=== PATIENT | female | born 1980 | race Caucasian/White ===

== ENCOUNTER 2020-05-25 12:21 | Emergency (ER) | payer MEDICAID ==
--- NOTE | 2020-05-25 13:38 | EDM.PDOC ---
ED HPI GENERAL MEDICAL PROBLEM - General Chief Complaint: Neuro Symptoms/Deficits Stated Complaint: DIZZINESS/ NAUSEA Time Seen by Provider: 05/25/20 13:22 Source of Information: Reports: Patient, Family, RN Notes Reviewed History Limitations: Reports: No Limitations - History of Present Illness INITIAL COMMENTS - FREE TEXT/NARRATIVE: 40-year-old female presents emergency department a complaint of a insect bite and rash developing on her left lower extremity. She was evaluated in the clinic prescribed medications of prednisone and an antihistamine. She states she has taken 2 doses of the prednisone started to feel dizzy after the second dose, called the nurses line at the clinic and they recommended report to the emergency department for further evaluation. She states the dizziness has improved the longer she gets away from the ingestion of the prednisone. She does have pictures of her insect bite and how it is developed on her left lower extremity. - Related Data Allergies Allergy/AdvReac Type Severity Reaction Status Date / Time codeine Allergy Hives Verified 05/25/20 13:17 Home Meds: Home Meds Cetirizine [ZyrTEC] 10 mg PO DAILY 05/25/20 [History] predniSONE [Prednisone] 20 mg PO ASDIRECTED 05/25/20 [History] Past Medical History Musculoskeletal History: Reports: Fracture - Past Surgical History HEENT Surgical History: Reports: Oral Surgery GI Surgical History: Reports: Appendectomy Other Musculoskeletal Surgeries/Procedures:: ankle surgery Social & Family History - Tobacco Use Smoking Status *Q: Never Smoker ED ROS GENERAL - Review of Systems Review Of Systems: See Below Constitutional: Denies: Fever, Chills Respiratory: Reports: No Symptoms Cardiovascular: Reports: Lightheadedness GI/Abdominal: Reports: No Symptoms Skin: Reports: Wound Neurological: Reports: Dizziness ED EXAM, GENERAL - Physical Exam Exam: See Below Free Text/Narrative:: Examination of the leg there is a ulcer approximately by 1 cm there is redness approximately 2 cm around the wound slight central clearing and then a thin band of redness again concern for development of erythema migrans Course - Vital Signs Last Recorded V/S: Last Vital Signs Temp 98.8 F 05/25/20 13:13 Pulse 80 05/25/20 13:13 Resp 16 05/25/20 13:13 BP 109/43 L 05/25/20 13:13 Pulse Ox 97 05/25/20 13:13 Departure - Departure Time of Disposition: 13:37 Disposition: Home, Self-Care 01 Condition: Fair Clinical Impression: Erythema migrans (Lyme disease) Instructions: Lyme Disease, Tick Bite Information, Adult, [id number] Referrals: Alberta Lambert PA-C [Primary Care Provider] - Additional Instructions: Take full course of antibiotics, please followup with your primary care provider in 3-5 days if not better, please call return to the emergency department with worsening of symptoms. 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 twice daily x7 days we will have her discontinue the prednisone at this time continue to use the antihistamine as needed follow-up primary care 3 to 5 days if no improvement This note was dictated using [employer] voice recognition software please call with any questions on syntax or grammar.
== END 2020-05-25 13:59 | disposition home or self-care (01) ==
LOC: JP.ED 12:21
DX: A26.0 Cutaneous erysipeloid (principal); A69.20 Lyme disease, unspecified; Z88.5 Allergy status to narcotic agent
CPT/HCPCS: 99283

== ENCOUNTER 2020-10-22 04:14 | Emergency (ER) | payer OTHER, MEDICAID ==
[2020-10-22] MEDS ORDERED: Albuterol/Ipratropium 3.0-0.5 MG/3 ML Neb Soln NEB ONE (04:39)
--- NOTE | 2020-10-22 04:46 | EDM.PDOC ---
ED HPI GENERAL MEDICAL PROBLEM - General Chief Complaint: Respiratory Problem Stated Complaint: ALLERGIC REACTION TO BATHROOM SPRAY Time Seen by Provider: 10/22/20 04:30 Source of Information: Reports: Patient History Limitations: Reports: No Limitations - History of Present Illness INITIAL COMMENTS - FREE TEXT/NARRATIVE: Kelly is a 40-year-old female presenting to the ED for evaluation of cough, chest heaviness, shortness of breath, loss of voice, and sore throat secondary to coughing. The patient's symptoms started shortly after her employer sprayed an air freshener at work on (2 days ago). She denies any fever or chills, rhinorrhea, headache or body aches, loss of taste or smell. She states that she has had previous episodes of this when exposed to this air freshener and is complained at work several times to her boss about sprain this. She finally went to [employer] [facility] to complain yesterday. She was unable to sleep tonight because when she reclines it causes her to cough significantly. chest heaviness Pain Score (Numeric/FACES): 5 - Related Data Allergies Allergy/AdvReac Type Severity Reaction Status Date / Time codeine Allergy Hives Verified 10/22/20 04:25 Home Meds: Home Meds diphenhydrAMINE [Benadryl] 50 mg PO Q6HR PRN 10/22/20 [History] Past Medical History Gastrointestinal History: Reports: GERD [employer]TER History: Reports: Other (See Below) Other [employer]TER History: ovarian cysts Musculoskeletal History: Reports: Fracture Endocrine/Metabolic History: Reports: Obesity/BMI 30+ - Infectious Disease History Infectious Disease History: Reports: Chicken Pox, Mononucleosis - Past Surgical History HEENT Surgical History: Reports: Oral Surgery GI Surgical History: Reports: Appendectomy Other Musculoskeletal Surgeries/Procedures:: ankle surgery Social & Family History - Tobacco Use Tobacco Use Status *Q: Never Tobacco User - Caffeine Use Caffeine Use: Reports: Coffee - Alcohol Use Days Per Week of Alcohol Use: 1 Number of Drinks Per Day: 1 Total Drinks Per Week: 1 - Recreational Drug Use Recreational Drug Use: No ED ROS GENERAL - Review of Systems Review Of Systems: See Below HEENT: Reports: Throat Pain, Other (Muffled voice) Respiratory: Reports: Shortness of Breath, Cough Cardiovascular: Reports: Chest Pain (Chest heaviness) Endocrine: Reports: No Symptoms GI/Abdominal: Reports: No Symptoms : Reports: No Symptoms Musculoskeletal: Reports: No Symptoms Skin: Reports: No Symptoms Neurological: Reports: No Symptoms. Denies: Headache Psychiatric: Reports: Anxiety Hematologic/Lymphatic: Reports: No Symptoms Immunologic: Reports: Environmental Allergy ED EXAM, GENERAL - Physical Exam Exam: See Below Exam Limited By: No Limitations General Appearance: Alert, Anxious, Moderate Distress Eye Exam: Bilateral Eye: EOMI, PERRL Throat/Mouth: Normal Inspection, Normal Lips, Normal Oropharynx, No Airway Compromise, Other (Muffled voice) Head: Atraumatic, Normocephalic Neck: Normal Inspection, Supple, Non-Tender, Full Range of Motion. No: Ly mphadenopathy (R), Lymphadenopathy (L) Respiratory/Chest: Lungs Clear, Normal Breath Sounds, No Accessory Muscle Use Cardiovascular: Normal Peripheral Pulses, Regular Rate, Rhythm, No JVD, No Murmur Peripheral Pulses: 2+: Radial (L), Radial (R) Extremities: Normal Inspection, No Pedal Edema Neurological: Alert, Oriented, Normal Cognition, No Motor/Sensory Deficits Psychiatric: Anxious Skin Exam: Warm, Dry, Normal Color, No Rash Lymphatic: No Adenopathy #1 Interpretation EKG Date: 10/22/20 Time: 04:24 Rhythm: NSR Rate (Beats/Min): 79 [place]: Normal P-Wave: Present QRS: Normal ST-T: Normal QT: Normal Comparison: NA - No Prior EKG Course - Vital Signs Last Recorded V/S: Last Vital Signs Temp 37.0 C 10/22/20 04:27 Pulse 85 10/22/20 04:27 Resp 19 10/22/20 04:27 BP 124/81 10/22/20 04:27 Pulse Ox 100 10/22/20 04:27 - Orders/Labs/Meds Orders: Active Orders 24 hr Category Date Time Status EKG Documentation Completion [RC] ASDIRECTED Care 10/22/20 04:49 Active RT Aerosol Therapy [RC] ASDIRECTED Care 10/22/20 04:39 Active EKG 12 Lead [EK] Routine Ther 10/22/20 04:48 Ordered Labs: Laboratory Tests 10/22/20 10/22/20 10/22/20 Range/Units 04:45 04:45 04:53 WBC 6.3 (4.5-11.0) K/uL RBC 4.24 (3.30-5.50) M/uL Hgb 13.4 (12.0-15.0) g/dL Hct 39.1 (36.0-48.0) % MCV 92 (80-98) fL MCH 32 H (27-31) pg MCHC 34 (32-36) % Plt Count 262 (150-400) K/uL Neut % (Auto) 44 (36-66) % Lymph % (Auto) 37 (24-44) % [place] % (Auto) 10 H (2-6) % Eos % (Auto) 7 H (2-4) % Baso % (Auto) 2 H (0-1) % Sodium 142 (140-148) mmol/L Potassium 4.1 (3.6-5.2) mmol/L Chloride 107 (100-108) mmol/L Carbon Dioxide 25 (21-32) mmol/L Anion Gap 10.4 (5.0-14.0) mmol/L BUN 11 (7-18) mg/dL Creatinine 0.8 (0.6-1.0) mg/dL Est Cr Clr Drug Dosing 74.67 mL/min Estimated GFR (MDRD) > 60 (>60) Glucose 98 (74-106) mg/dL Calcium 8.3 L (8.5-10.1) mg/dL Total Bilirubin 0.4 (0.2-1.0) mg/dL AST 18 (15-37) U/L ALT 21 (12-78) U/L Alkaline Phosphatase 54 (46-116) U/L Troponin I < 0.017 (0.000-0.056) ng/mL C-Reactive Protein 0.06 (0.0-0.3) mg/dL Total Protein 6.2 L (6.4-8.2) g/dL Albumin 3.4 (3.4-5.0) g/dL Globulin 2.8 (2.3-3.5) g/dL Albumin/Globulin Ratio 1.2 (1.2-2.2) SARS CoV-2 RNA Rapid KANDI Negative Meds: Medications Discontinued Medications Generic Name Dose Route Start Last Admin Trade Name Freq PRN Reason Stop Dose Admin Albuterol/Ipratropium 3 ml 10/22/20 04:39 10/22/20 04:46 Duoneb 3.0-0.5 Mg/3 Ml NEB 10/22/20 04:40 3 ml ONETIME ONE Administration - Re-Assessments/Exams Free Text/Narrative Re-Assessment/Exam: 10/22/20 05:38 I reviewed the labs which show elevation of the eosinophil count which is likely a histamine type stimulation probably secondary to her exposure to the irritant aerosol. My plan is to treat her with an albuterol metered-dose inhaler and a Medrol Dosepak. The patient's Covid test and remainder the blood work is unremarkable. Indications to return to the ED were discussed and she is suitable for discharge in satisfactory condition. Departure - Departure Time of Disposition: 05:38 Disposition: Home, Self-Care 01 Condition: Good Clinical Impression: Allergy to environmental factors, Acute bronchospasm - Discharge Information *PRESCRIPTION DRUG MONITORING PROGRAM REVIEWED*: Not Applicable *COPY OF PRESCRIPTION DRUG MONITORING REPORT IN PATIENT GERMAN: Not Applicable Instructions: Bronchospasm, Adult, [id number], Allergies, Adult, [id number] Referrals: PCP,None [Primary Care Provider] - Forms: ED Department Discharge Care Plan Goals: I have prescribed a Medrol Dosepak which is a tapered steroid to help reduce inflammation in the airways and relieve some of your symptoms. In addition I have prescribed an inhaler that you can use to open up the airways to make your breathing more easy and to reduce the cough. Sepsis Event Note (ED) - Evaluation Sepsis Screening Result: No Definite Risk - Focused Exam Vital Signs: Vital Signs Temp Pulse Resp BP Pulse Ox 10/22/20 04:27 37.0 C 85 19 124/81 100 - Problem List & Annotations (1) Acute bronchospasm SNOMED Code(s): 48200657091964 Code(s): J98.01 - ACUTE BRONCHOSPASM Status: Acute Priority: Medium Current Visit: Yes (2) Allergy to environmental factors SNOMED Code(s): 743894124 Code(s): Z91.09 - OTH ALLERGY STATUS, OTH THAN TO DRUGS AND BIOLG SUBSTANCES Status: Acute Priority: Medium Current Visit: Yes - Problem List Review Problem List Initiated/Reviewed/Updated: Yes - My Orders Last 24 Hours: My Active Orders 10/22/20 04:39 RT Aerosol Therapy [RC] ASDIRECTED 10/22/20 04:48 EKG 12 Lead [EK] Routine 10/22/20 04:49 EKG Documentation Completion [RC] ASDIRECTED - Assessment/Plan Last 24 Hours: My Active Orders 10/22/20 04:39 RT Aerosol Therapy [RC] ASDIRECTED 10/22/20 04:48 EKG 12 Lead [EK] Routine 10/22/20 04:49 EKG Documentation Completion [RC] ASDIRECTED
== END 2020-10-22 05:52 | disposition home or self-care (01) ==
LOC: JP.ED 04:14
DX: J98.01 Acute bronchospasm (principal); E66.9 Obesity, unspecified; Z20.822 Contact with and (suspected) exposure to COVID-19; Z88.5 Allergy status to narcotic agent; Z68.37 Body mass index [BMI] 37.0-37.9, adult; Z91.09 Other allergy status, other than to drugs and biological substances
CPT/HCPCS: 36415; 80053; 84484; 85025; 86140; 93005; 93010; 94640; 99284; 99285-25; J7620-GY; U0002